=== PATIENT | male | born 1960 | race African-American/Black ===

== ENCOUNTER 2020-04-22 18:47 | Inpatient (IN) ==
[2020-04-22] MEDS ORDERED: Heparin - STEMI 5,000 UNITS/ML 1 ml VIAL IV ONE (18:49)
[2020-04-22 19:00] LABS: ABS Basophils 0.1 10^3/ul (0-0.2); ABS Eosinophils 0.2 10^3/ul (0-0.6); ABS Lymphocytes 3.2 10^3/ul (1.0-4.8); ABS Monocytes 1.1 10^3/ul (0-0.8); ABS Neutrophils 6.1 10^3/ul (1.5-7.7); Eosinophil % 2.1 %; Hematocrit 43 % (42-52); Hemoglobin 14.9 g/dL (14.0-18.0); Lymphocyte % 29.8 %; Mean Corpuscular HGB Conc 35 g/dL (31-36); Mean Corpuscular Hemoglobin 30 pg (27-31); Mean Corpuscular Volume 85 fL (80-94); Mean Platelet Volume 7.6 fL (7.4-10.4); Platelet Count 351 10^3/uL (150-450); Red Blood Count 5.05 10^6 /uL (4.18-5.48); Red Cell Distribution Width 14 % (10-15); White Blood Count 10.7 10^3/uL (3.5-10.8)
[2020-04-22] MEDS ORDERED: HYDROmorphone 1 MG/1 ML SYRINGE ONE ×3 (19:05→21:34)
[2020-04-22 19:10] LABS: Activated Partial Thrombo Time 27.2 seconds (26.0-38.0); INR 1.04 (0.82-1.09)
[2020-04-22] MEDS ORDERED: Midazolam 5 mg/5 ml VIAL 1 mg/ml 5 ml VIAL (5 mg) ONE (19:10)
[2020-04-22] MEDS ORDERED: Heparin 1,000 UNIT/ML 10 ml (10,000 UNITS) CATHLAB/DIALYSIS ONE (19:11)
[2020-04-22] MEDS ORDERED: VERAPAMIL 2.5 MG/ML 2 ML VIAL ** 5 mg/2 ml ONE (19:11)
[2020-04-22] MEDS ORDERED: Iohexol 350 (CONTRAST) 200 ML MDV IV ONE ×2 (19:11→19:12)
[2020-04-22] MEDS ORDERED: fentaNYL 100 mcg/2 ml 50 MCG/ML VIAL ONE (19:11)
[2020-04-22] MEDS ORDERED: Lidocaine 1% VIAL 10 MG/ML VIAL ONE (19:11)
[2020-04-22] MEDS ORDERED: nitroGLYCERIN DRIP 25,000 MCG/250 ML BTL ONE (19:11)
[2020-04-22] MEDS ORDERED: Heparin 2 UNITS/ML 1000 mls 3,000 ML IV ONE (19:11)
[2020-04-22] MEDS ORDERED: Amiodarone 150 mg IVPREMIX 0 MG/0 ML BAG IV ONE (19:11)
[2020-04-22] MEDS ORDERED: diPHENhydraMINE IV 50 MG/ML 1 ml VIAL (BENADRYL) ONE (19:12)
[2020-04-22 19:20] LABS: ALT 19 U/L (7-52); AST 19 U/L (13-39); Albumin 3.7 g/dL (3.2-5.2); Albumin/Globulin Ratio 0.9 (1-3); Alkaline Phosphatase 69 U/L (34-104); Anion Gap 6 mmol/L (2-11); BUN/Creatinine Ratio 19.6 (8-20); Blood Urea Nitrogen 22 mg/dL (6-24); CO2 Carbon Dioxide 25 mmol/L (22-32); Calcium 8.9 mg/dL (8.6-10.3); Chloride 108 mmol/L (101-111); Creatine Kinase 197 U/L (10-223); EGFR African American 81.2 (>60); EGFR Non-African American 67.1 (>60); Globulin 3.9 g/dL (2-4); Glucose 135 mg/dL (70-100); LDL Cholesterol Direct 118 mg/dL; Potassium 3.7 mmol/L (3.5-5.0); Sodium 139 mmol/L (135-145); Total Protein 7.6 g/dL (6.4-8.9)
[2020-04-22 19:24] LABS: CKMB ng/mL 2.8 ng/mL (0.6-6.3); Troponin I 0.04 ng/mL (<0.03)
[2020-04-22] MEDS ORDERED: Heparin 2 UNITS/ML 1000 mls 2,000 ML IV ONE (19:54)
[2020-04-22] MEDS ORDERED: Adenosine 3 MG/ML 2 ml VIAL (6 mg) ONE (20:50)
[2020-04-22] MEDS ORDERED: Amiodarone IV 150 mg/3 ml VIAL ONE (20:50)
[2020-04-22] MEDS ORDERED: Ondansetron 4 mg VIAL 2 MG/ML 2 ml VIAL ONE (21:04)
[2020-04-22] MEDS ORDERED: Heparin 2 UNITS/ML 1000 mls 1,000 ML IV ONE (21:11)
[2020-04-22] MEDS ORDERED: Phenylephrine IV 10 MG/ML 1 ml VIAL ONE (21:43)
[2020-04-22] MEDS ORDERED: NS 0.9% 1000 ml BAG 1,000 ML IV SCH (23:15)
[2020-04-22] MEDS ORDERED: Furosemide 20 mg/2 ml IV VIAL IV ONE (23:25)
[2020-04-23 00:41] LABS: Troponin I > 76.00 ng/mL (<0.03)
[2020-04-23 05:21] LABS: Hematocrit 41 % (42-52); Mean Corpuscular HGB Conc 35 g/dL (31-36); Mean Corpuscular Hemoglobin 30 pg (27-31); Mean Corpuscular Volume 86 fL (80-94); Mean Platelet Volume 7.8 fL (7.4-10.4); Platelet Count 322 10^3/uL (150-450); Red Blood Count 4.71 10^6 /uL (4.18-5.48); Red Cell Distribution Width 14 % (10-15); White Blood Count 14.5 10^3/uL (3.5-10.8)
[2020-04-23 05:24] LABS: ABS Lymphocytes 0.9 10^3/ul (1.0-4.8); ABS Monocytes 1.4 10^3/ul (0-0.8); ABS Neutrophils 12.3 10^3/ul (1.5-7.7); Eosinophil % 0.2 %; Lymphocyte % 6.4 %
[2020-04-23 05:38] LABS: ALT 69 U/L (7-52); AST 542 U/L (13-39); Albumin 3.7 g/dL (3.2-5.2); Alkaline Phosphatase 68 U/L (34-104); Anion Gap 6 mmol/L (2-11); BUN/Creatinine Ratio 18.3 (8-20); Blood Urea Nitrogen 19 mg/dL (6-24); CO2 Carbon Dioxide 21 mmol/L (22-32); Calcium 8.7 mg/dL (8.6-10.3); Chloride 109 mmol/L (101-111); Cholesterol 157 mg/dL; EGFR African American 88.4 (>60); EGFR Non-African American 73.1 (>60); Globulin 3.6 g/dL (2-4); Glucose 146 mg/dL (70-100); LDL Cholesterol 104 mg/dL; Potassium 4.2 mmol/L (3.5-5.0); Sodium 136 mmol/L (135-145); Total Protein 7.3 g/dL (6.4-8.9); Triglycerides 126 mg/dL
[2020-04-23] MEDS ORDERED: Furosemide 20 mg/2 ml IV VIAL IV SLOW PU ONE (06:00)
[2020-04-23] MEDS: Heparin DRIP 25,000 UNITS BAG 25,000 UNITS/500 ML BAG IV SCH (07:32)
[2020-04-23 08:01] LABS: Troponin I > 76.00 ng/mL (<0.03)
[2020-04-23] MEDS ORDERED: Perflutren Lipid Microsphere 3 ML VIAL ONE (08:01)
[2020-04-23 12:52] LABS: Troponin I > 76.00 ng/mL (<0.03)
[2020-04-23] MEDS: Bismuth Subsalicylate 30 ML/527 MG ML PO SCH ×2 (13:23→21:17)
[2020-04-23] MEDS: Pantoprazole VIAL 40 MG VIAL IV SCH (13:24)
[2020-04-23 15:49] LABS: TSH Ultra Thyroid Stim Horm 1.38 mcIU/mL (0.34-5.60)
[2020-04-23 16:57] LABS: BUN/Creatinine Ratio 18.4 (8-20); Calcium 8.5 mg/dL (8.6-10.3); EGFR African American 89.4 (>60); EGFR Non-African American 73.9 (>60); Potassium 3.6 mmol/L (3.5-5.0)
[2020-04-23] MEDS: Amiodarone 400 mg TAB PO SCH (21:14)
[2020-04-23] MEDS: cefTRIAXone 1 gm/50 mL NS BAG 1 GM/50 ML BAG IVPB SCH (21:17)
[2020-04-23] MEDS: DOXYcycline 100 MG in NS 0.9% 250 ml 250 ML IVPB SCH (21:17)
[2020-04-24] MEDS: Heparin DRIP 25,000 UNITS BAG 25,000 UNITS/500 ML BAG IV SCH (03:27)
[2020-04-24 05:16] LABS: Hematocrit 37 % (42-52); Hemoglobin 12.7 g/dL (14.0-18.0); Mean Corpuscular HGB Conc 34 g/dL (31-36); Mean Corpuscular Hemoglobin 29 pg (27-31); Mean Corpuscular Volume 86 fL (80-94); Mean Platelet Volume 7.8 fL (7.4-10.4); Platelet Count 290 10^3/uL (150-450); Red Blood Count 4.34 10^6 /uL (4.18-5.48); Red Cell Distribution Width 14 % (10-15); White Blood Count 12.1 10^3/uL (3.5-10.8)
[2020-04-24 05:32] LABS: Anion Gap 5 mmol/L (2-11); BUN/Creatinine Ratio 17.5 (8-20); Blood Urea Nitrogen 18 mg/dL (6-24); CO2 Carbon Dioxide 22 mmol/L (22-32); Calcium 8.4 mg/dL (8.6-10.3); Chloride 109 mmol/L (101-111); EGFR African American 89.4 (>60); EGFR Non-African American 73.9 (>60); Glucose 139 mg/dL (70-100); Magnesium 1.8 mg/dL (1.9-2.7); Phosphorus 1.7 mg/dL (2.5-5.0); Potassium 3.6 mmol/L (3.5-5.0); Sodium 136 mmol/L (135-145)
[2020-04-24 05:42] LABS: ABS Basophils 0.1 10^3/ul (0-0.2); ABS Eosinophils 0.1 10^3/ul (0-0.6); ABS Lymphocytes 1.5 10^3/ul (1.0-4.8); ABS Monocytes 1.7 10^3/ul (0-0.8); ABS Neutrophils 8.7 10^3/ul (1.5-7.7); Eosinophil % 1.1 %; Lymphocyte % 12.2 %
[2020-04-24] MEDS ORDERED: Potassium & Sodium Phos 250 mg = 1 PACKET PO ONE (06:08)
[2020-04-24] MEDS ORDERED: Magnesium Sulfate 2 gm BAG 2 GM/50 ML BAG IVPB ONE (06:09)
[2020-04-24 08:04] LABS: Activated Partial Thrombo Time 56.6 seconds (26.0-38.0)
[2020-04-24 08:53] LABS: INR 1.32 (0.82-1.09)
[2020-04-24 09:01] LABS: Troponin I > 76.00 ng/mL (<0.03)
[2020-04-24] MEDS: DOXYcycline 100 MG in NS 0.9% 250 ml 250 ML IVPB SCH ×2 (09:13→20:16)
[2020-04-24] MEDS: Amiodarone 400 mg TAB PO SCH ×2 (09:23→21:23)
[2020-04-24] MEDS: Bismuth Subsalicylate 30 ML/527 MG ML PO SCH ×2 (09:26→21:20)
[2020-04-24] MEDS ORDERED: Warfarin per PHARMACY **NOTE FOLLOW UP SCH (10:00)
[2020-04-24] MEDS ORDERED: Potassium Chlor 20 meq TAB.ER PO ONE (10:49)
[2020-04-24] MEDS: Pantoprazole VIAL 40 MG VIAL IV SCH (12:43)
[2020-04-24] MEDS ORDERED: Warfarin DAILY REMINDER **NOTE FOLLOW UP SCH (17:00)
[2020-04-24] MEDS: cefTRIAXone 1 gm/50 mL NS BAG 1 GM/50 ML BAG IVPB SCH (21:24)
[2020-04-25] MEDS: Heparin DRIP 25,000 UNITS BAG 25,000 UNITS/500 ML BAG IV SCH (02:28)
[2020-04-25 07:37] LABS: ALT 35 U/L (7-52); AST 103 U/L (13-39); Albumin 3.3 g/dL (3.2-5.2); Albumin/Globulin Ratio 0.9 (1-3); Alkaline Phosphatase 63 U/L (34-104); Anion Gap 6 mmol/L (2-11); BUN/Creatinine Ratio 14.7 (8-20); Blood Urea Nitrogen 16 mg/dL (6-24); CO2 Carbon Dioxide 21 mmol/L (22-32); Calcium 8.8 mg/dL (8.6-10.3); Chloride 109 mmol/L (101-111); EGFR African American 83.8 (>60); EGFR Non-African American 69.2 (>60); Globulin 3.7 g/dL (2-4); Glucose 137 mg/dL (70-100); Potassium 3.8 mmol/L (3.5-5.0); Sodium 136 mmol/L (135-145)
[2020-04-25 07:54] LABS: INR 1.5 (0.82-1.09)
[2020-04-25 08:07] LABS: Urine Appearance Clear; Urine Bilirubin Negative (Negative); Urine Blood Negative (Negative); Urine Color Amber; Urine Glucose Negative (Negative); Urine Ketones Negative (Negative); Urine Nitrite Negative (Negative); Urine Protein Negative (Negative); Urine Specific Gravity 1.024 (1.010-1.030); Urine Urobilinogen Positive (Negative)
[2020-04-25] MEDS: Bismuth Subsalicylate 30 ML/527 MG ML PO SCH (09:11)
[2020-04-25] MEDS ORDERED: Potassium Chlor 20 meq TAB.ER PO ONE (09:59)
[2020-04-25 10:30] LABS: C Reactive Protein 115.97 mg/L (<8.01)
[2020-04-25 10:44] LABS: Troponin I 36.17 ng/mL (<0.03)
[2020-04-25] MEDS: Amiodarone 400 mg TAB PO SCH (11:17)
[2020-04-25] MEDS: DOXYcycline 100 MG in NS 0.9% 250 ml 250 ML IVPB SCH (11:17)
[2020-04-25 11:39] VITALS: BP 101/59
== END 2020-04-25 15:10 | disposition home or self-care (01) | DRG 247 ==
LOC: ED 18:47 → CHICATH 19:06 → ICU 23:16 → MEDTELE 04-24 14:02
PROVIDERS: ADMIT Internal Medicine Cardiovascular Disease